=== PATIENT | female | born 1995 | race Caucasian/White ===

== ENCOUNTER 2018-11-17 16:31 | Outpatient (CLI) | payer SELFPAY ==
--- NOTE | 2018-11-17 17:37 | Diagnostic Imaging Report ---
ROSALIE VILLANUEVA (CONRADO) - OP [facility] [address] [id number] Report Submission Date: November 17, 2018 5:34:16 PM CDT Patient Study Name: BANDAR SOMMERS Date: November 17, 2018 4:43:56 PM CDT Modality Type: DX Gender: F Description: KNEE 3 VIEWS : 89 Institution: [facility] Physician: ROSALIE VILLANUEVA (CONRADO) - OP KNEE RIGHT HISTORY: RIGHT KNEE PAIN AND SWELLING X 1 DAY. NKI. FINDINGS: AP, lateral and patellar views of the right knee demonstrate bones and joints to be normal without fracture, degenerative change, or joint effusion identified. No soft tissue abnormality is seen. IMPRESSION: Unremarkable right knee images. Electronically signed on November 17, 2018 5:34:16 PM CDT by: Km GUADARRAMA
== END 2018-11-17 16:33 ==
LOC: RAD 16:31
PROVIDERS: ATTEND Nurse Practitioner Family
DX: M25.561 Pain in right knee (principal)
CPT/HCPCS: 73562

== ENCOUNTER 2019-03-12 18:48 | Emergency (ER) | payer SELFPAY ==
--- NOTE | 2019-03-12 19:11 | ED Physician Documentation ---
General Adult - HISTORIAN Historian: patient - HPI Stated Complaint: short of air Chief Complaint: Syncope Onset: minutes (45) Timing: better Severity: mild Further Comments: yes (She reports she was walking through [employer] and she started to feel dizzy. She though possibly she had not had any food recently so she went home and she did eat. While resting she felt another wave of dizziness and this passed in seconds. She has had some allergy drainage. NO fever. No other sick contacts or issues. She denies any compalints now) - ROS CONST: no problems CVS/RESP: other (palpatations during second episode ). denies: chest pain, shortness of breath MS/SKIN/LYMPH: denies: rash NEURO/PSYCH: dizziness. denies: headache, fainting - PAST HX Past History: none Immunizations: UTD Allergies/Adverse Reactions: Allergies Allergy/AdvReac Type Severity Reaction Status Date / Time No Known Allergies Allergy Verified 03/12/19 19:11 Home Medications: Ambulatory Orders Medication Instructions Recorded Meloxicam 15 mg PO DAILY 03/12/19 Venlafaxine HCl [Effexor] 150 mg PO DAILY 03/12/19 - SOCIAL HX Smoking History: non-smoker Alcohol Use: none Drug Use: none - FAMILY HX Family History: No - VITAL SIGNS Vital Signs: Vital Signs Temp Pulse Resp BP Pulse Ox 97.8 F 104 H 18 122/77 100 03/12/19 19:07 03/12/19 19:07 03/12/19 19:07 03/12/19 19:07 03/12/19 19:07 - REVIEWED ASSESSMENTS Nursing Assessment Reviewed: Yes Vitals Reviewed: Yes General Adult Physical Exam - PHYSICAL EXAM GENERAL APPEARANCE: no distress EENT: pharynx normal, abnormal TM (bilateral bulding ), other (pain with palpation on frontal sinus ) RESPIRATORY: no resp distress, chest non-tender, breath sounds normal CVS: reg rate & rhythm, heart sounds normal ABDOMEN: soft SKIN: warm/dry EXTREMITIES: non-tender, normal range of motion, no evidence of injury NEURO: oriented X3 Discharge Clincal Impression: Sinusitis Qualifiers: Sinusitis location: frontal Chronicity: acute Recurrence: non-recurrent Qualified Code(s): J01.10 - Acute frontal sinusitis, unspecified Referrals: Vinita Soler PRN [Primary Care Provider] - 2 Days Comments: 1. Augmentin 875/125 mg take 1 by mouth twice daily x 10 days 2. Medrol dose pack 4 mg pack - as directed 3. Meclazine 25 mg take 1 by mouth every 8 hours as needed for dizziness 4. Increase fluids 5. OTC allergy med as directed as needed 6. See PCP in 2 days if no improvement 7. Return to ER for any increasing concerns Condition: Stable Disposition: 01 HOME, SELF-CARE Decision to Admit: NO Date of Decison to Admit: 03/12/19 Decision Time: 19:25
[2019-03-12 19:36] VITALS: BP 116/81
== END 2019-03-12 19:34 | disposition home or self-care (01) ==
LOC: ED 18:48
DX: J01.10 Acute frontal sinusitis, unspecified (principal)
CPT/HCPCS: 99283